=== PATIENT | female | born 1975 | race Native Hawaiian/Other Pacific Islander ===

== ENCOUNTER 2018-05-21 09:13 | Inpatient (IN) | payer OTHER ==
[2018-05-21] MEDS ORDERED: MINERAL OIL PO PRN (09:39)
[2018-05-21] MEDS ORDERED: ePHEDrine SULFATE IV PRN (09:39)
[2018-05-21] MEDS ORDERED: APRESOLINE IV ONE (09:42)
[2018-05-21] MEDS ORDERED: MAGNESIUM SULFATE 4GM/100ML 4 GM/100 ML BAG IV ONE (09:43)
[2018-05-21] MEDS ORDERED: MAGNESIUM SULFATE 40GM/1000ML 40 GM/1,000 ML BAG IV SCH (10:00)
[2018-05-21] MEDS ORDERED: PITOCin/NS 20 UNIT/1000ML DRIP 20 UNITS/1,000 ML BAG IV SCH ×3 (10:00→12:00)
[2018-05-21] MEDS ORDERED: LACTATED RINGERS 1,000 ML IV SCH ×2 (10:00→11:00)
[2018-05-21] MEDS ORDERED: DIPRIVAN 10 MG/ML IV ONE ×2 (10:22)
[2018-05-21] MEDS ORDERED: SUBLIMAZE ONE (10:22)
[2018-05-21] MEDS ORDERED: NORMODYNE IV ONE (10:30)
--- NOTE | 2018-05-21 10:34 | History and Physical Report ---
History of Present Illness Date of examination: 05/21/18 Date of admission: 05/21/18 09:53 Chief complaint: Severe constant abdominal pain since 04:00 History of present illness: 42 year old presents to L&D complaining of severe abdominal pain. Patient states abdominal pain started at 04:00 AM and has been constant since then. Patient denies vaginal bleeding or leaking of fluid. Patient denies contractions. Patient reports movement has been slightly decreased this AM but until this morning has been normal. Patient denies headache, visual disturbance, nausea or vomiting or swelling. Patient has received care at [facility]; she brings records with her. records show last visit was in January but patient states she has been seen more recently (2 weeks ago). Patient has gestational diabetes and has been taking Metformin. Patient states her sugars have not been well controlled. She states she has been seeing [facility]. Patient denies having chronic hypertension. She reports having severe preeclampsia with her first which necessitated a (32 week) vaginal delivery. Patient reports her second child was also born early (32 weeks ) due to PPROM. Third child was a full term normal vaginal . Fourth child was born vaginally at 40 weeks after IUFD. LMP 09/08/17. EDC 06/15/18. EGA 36 weeks, 3 days gestation. Current medications: Vitamin, Metformin 500 mg po BID. Medication allergies: NKDA. labs: O+, antibody screen negative, pap smear negative, rubella immune , RPR nonreactive, hepatitis B surface antigen negative, HIV negative, chlamydia negative, gonorrhea negative, quad screen negative. Past History Past Medical History: other (obesity, gestational diabetes, preeclampsia with her first ) Past Surgical History: no surgical history [employer] History: denies: abnormal PAP smear, chlamydia, gonorrhea, herpes, HIV Family/Genetic History: none Social history: , lives with family, full code. denies: smoking, alcohol abuse, prescription drug abuse, IV drug use - Obstetrical History Expected Date of Delivery: 06/15/18 Actual Gestation: 36 Week(s) 3 Day(s) : 8 Para: 3 Hx # Term Pregnancies: 2 Number of Pregnancies: 3 Spontaneous Abortions: 3 Induced : 0 Number of Living Children: 3 Medications and Allergies Allergies Allergy/AdvReac Type Severity Reaction Status Date / Time No Known Allergies Allergy Unverified 05/21/18 09:17 Active Meds: Active Medications Lactated Ringer's (Lactated Ringers) 1,000 mls @ 125 mls/hr IV DIRECT JONAH Oxytocin/Sodium Chloride (Pitocin/Ns 20 Unit/1000ml Drip) 20 units in 1,000 mls @ 125 mls/hr IV DIRECT JONAH Magnesium Sulfate (Magnesium Sulfate 40gm/1000ml) 40 gm in 1,000 mls @ 50 mls/ hr IV DIRECT JONAH Labetalol HCl (Normodyne) 10 mg IV ONCE ONE Stop: 05/21/18 10:23 Mineral Oil (Mineral Oil) 30 ml PO QHS PRN PRN Reason: Constipation Review of Systems All systems: negative (severe abdominal pain) - Vital Signs Vital signs: Vital Signs Pulse Pulse Ox 71 98 05/21/18 09:23 05/21/18 09:23 Temp Pulse Resp BP Pulse Ox 69 206/99 98 05/21/18 09:35 05/21/18 09:35 05/21/18 09:33 - Physical Exam Cardiovascular: Regular rate, Normal S1, Normal S2 Lungs: Positive: Clear to auscultation Abdomen: Positive: normal appearance, soft, tenderness. Negative: distention, guarding, rigidity Genitourinary (Female): Positive: normal external genitalia Cervix: Positive: other (60/-3 per RN upon arrival) Uterus: Positive: enlarged (gravid) Extremities: Positive: normal. Negative: tenderness, edema - Obstetrical FHR: category 2 (FHR baseline 140 with moderate variability and occasional variable FHR deceleration) Uterine Contraction Monitor Mode: External Cervical Dilatation: 1 Cervical Effacement Percentage: 60 station: -3 Results Result Diagrams: 05/21/18 10:15 All other labs normal. Assessment and Plan A: at 36 weeks, 3 days gestation. Severe preeclampsia. Uncontrolled gestational diabetes. GBS unknown. P: Admit Stat section per Dr. Nickerson. Stat labs. Magnesium Sulfate. IV Hydralazine. IV Labetalol.
[2018-05-21] MEDS ORDERED: BICITRA ONE (10:36)
[2018-05-21] MEDS ORDERED: ANCEF/STERILE WATER 2 GM/20 ML 2 GM/20 ML SYRINGE IV ONE (10:37)
[2018-05-21] MEDS ORDERED: PEPCID IV ONE ×3 (10:37→11:00)
[2018-05-21] MEDS ORDERED: REGLAN ONE (10:37)
[2018-05-21] MEDS ORDERED: BICITRA PO ONE ×2 (10:40→11:00)
[2018-05-21] MEDS ORDERED: REGLAN IV ONE ×2 (10:40→11:00)
[2018-05-21 10:42] LABS: Basophils # (Auto) 0.1 K/mm3 (0.0-0.1); Basophils % (Auto) 1.4 % (0.0-1.8); Eosinophils # (Auto) 0.1 K/mm3 (0.0-0.4); Eosinophils % (Auto) 0.8 % (0.0-4.3); Lymphocytes # (Auto) 2.6 K/mm3 (1.2-5.4); Lymphocytes % (Auto) 30.2 % (13.4-35.0); Mean Corpuscular HGB Conc 34 % (30-34); Mean Corpuscular Hemoglobin 29 pg (28-32); Mean Corpuscular Volume 83 fl (79-97); Monocytes # (Auto) 0.4 K/mm3 (0.0-0.8); Monocytes % (Auto) 5.2 % (0.0-7.3); Platelet Count 131 K/mm3 (140-440); Red Blood Count 5.27 M/mm3 (3.65-5.03)
[2018-05-21 10:50] LABS: Bacteria,Urine 4+ /HPF (Negative); Bilirubin,Urine NEG (Negative); Blood,Urine NEG (Negative); Color,Urine Yellow (Yellow); Mucus,Urine FEW /HPF
--- NOTE | 2018-05-21 10:51 | Anesthesia Consultation ---
Anesthesia Consult and Med Hx Date of service: 05/21/18 - Airway Anesthetic Teeth Evaluation: Good ROM Head & Neck: Adequate Mental/Hyoid Distance: Adequate Mallampati Class: Class III Intubation Access Assessment: Probably Good - Pulmonary Exam CTA: Yes - Cardiac Exam Cardiac Exam: RRR - Pre-Operative Health Status ASA Pre-Surgery Classification: ASA3 Proposed Anesthetic Plan: Spinal - Pre-Anesthesia Comment Pre-Anesthesia Comments: 42y presenting with concerns for Pre-Eclampsia; preg also complicated by poorly controlled diabetes. Prev deliveries vaginal. - Pulmonary Hx Asthma: No - Cardiovascular System Hx Hypertension: Yes Hx Coronary Artery Disease: No - Central Nervous System Hx Seizures: No Hx Psychiatric Problems: No - Endocrine Hx Renal Disease: No Hx Liver Disease: No Hx Hypothyroidism: No Hx Hyperthyroidism: No - Hematic Hx Anemia: No Hx Sickle Cell Disease: No - Other Systems Hx Alcohol Use: No
[2018-05-21 10:52] LABS: INR 0.81 (0.87-1.13)
--- NOTE | 2018-05-21 10:52 | Anesthesia Day of Surgery ---
Anesthesia Day of Surgery - Day of Surgery Patient Examined: Yes Patient H&P Reviewed: Yes Patient is NPO: No (emergent) Beta Blockers: No Cardiac Clearance: Yes Pulmonary Clearance: Yes Nadir's Test: N/A
[2018-05-21 10:53] LABS: Partial Thromboplastin Time 26.9 Sec. (24.2-36.6)
[2018-05-21 10:54] LABS: Amphetamine Screen,Urine PRESUMPTIVE NEGATIVE; Benzodiazepines Screen,Urine PRESUMPTIVE NEGATIVE; Cannabinoid Screen,Urine PRESUMPTIVE NEGATIVE; Cocaine Screen,Urine PRESUMPTIVE NEGATIVE; Methadone Screen,Urine PRESUMPTIVE NEGATIVE; Opiate Screen,Urine PRESUMPTIVE NEGATIVE
[2018-05-21] MEDS ORDERED: ANCEF/STERILE WATER 2 GM/20 ML 2 GM/20 ML SYRINGE IV NR (11:00)
[2018-05-21] MEDS ORDERED: ANCEF/STERILE WATER 2 GM/20 ML IV NR (11:00)
[2018-05-21] MEDS ORDERED: WATER FOR IRRIG STERILE IR ONE (11:10)
[2018-05-21] MEDS ORDERED: NACL 0.9% IR ONE (11:10)
[2018-05-21] MEDS ORDERED: LACTATED RINGERS 1,000 ML IV ONE (11:17)
[2018-05-21] MEDS ORDERED: NEO SYNEPHRINE/NS Syringe(OR USE) IV ONE ×3 (11:23→11:37)
--- NOTE | 2018-05-21 11:34 | Ultrasound Report ---
OB LIMITED INDICATION: Evaluate placental status, position. Severe abdominal pain. COMPARISON: None similar during this gestation. TECHNIQUE: Transabdominal grayscale ultrasound with Doppler interrogation. Gestation: Arnett Position: Cephalic Amniotic Fluid: WNL (7-24 cm) JULIANE = 9.2 cm Placenta: Fundal. No evidence of abruption. Few small cystic areas within the placenta may represent placental lakes. Placental Grade: Zero Heart Rate: 150 BPM CONCLUSION: Findings, as above.
[2018-05-21] MEDS ORDERED: NACL 0.9% 1000 ML 1,000 ML ONE (11:36)
[2018-05-21 11:55] LABS: Alanine Aminotransferase 30 units/L (7-56); Albumin 3.4 g/dL (3.9-5); BUN/Creatinine Ratio 28; Blood Urea Nitrogen 11 mg/dL (7-17); Hemolysis Index 8; Uric Acid 5.3 mg/dL (3.5-7.6)
--- NOTE | 2018-05-21 11:56 | Operative Report ---
Operative Report Operative Report: Date of procedure: 05/21/2018 Pre-operative diagnosis: 1. Intrauterine at 36-3/7 weeks 2. Severe preeclampsia 3. Uncontrolled gestational diabetes Post-operative diagnosis: Same Procedure name(s): Primary low transverse section Surgeon: Elliott Nickerson MD Glass Cut Off Supervisor: None Anesthesia: Spinal epidural anesthesia by Dr. Stevenson EBL: 500 mls Findings: A 3780 g female Apgars 8 at 1 minute and 9 at 5 minutes. Clear amniotic fluid. Normal uterus. Normal tubes and ovaries bilaterally. Procedure: After the patient was prepped and draped in usual sterile fashion, and after satisfactory level of epidural anesthesia was obtained, the skin knife was used to make a transverse skin incision. The incision was excised down to layer of the fascia, which was nicked in the midline and extended laterally using the Bovie cautery. The rectus muscles were dissected off the rectus fascia both superiorly and inferiorly. The rectus bellies in the midline, and the peritoneum was entered under direct visualization. The peritoneal incision was extended superiorly and inferiorly. A bladder flap was created and the bladder blade was then placed. The uterus was scored in a curvilinear linear fashion, entered in the midline revealing clear amniotic fluid. The infant's head was delivered onto the surgical field, nuchal cord 1 reduced and the oropharynx and nasopharynx were bulb suctioned. The rest of the 's body was delivered, cord was doubly clamped and cut and the was handed to the waiting respiratory team. Cord blood was obtained. The placenta was manually removed from the uterus, and the uterus removed from its normal anatomical position. After gentle uterine lavage, the incision was inspected and found to be without extensions. It was then closed in 2 layers using 0 Vicryl suture in a running interlocking fashion, the second layer imbricating the first. After good hemostasis was achieved, copious amounts or irrigation was performed, and the gutters were suctioned free of blood and blood clots. Tisseel sealant was sprayed across the uterine incision. The uterus was then returned to its normal anatomical position, and after excellent hemostasis assured, the peritoneum was re-approximated using 3-0 Vicryl suture in a running interlocking fashion, and then the rectus muscles were re- approximated using 3-0 Vicryl suture in a [id number] configuration. The fascia was then re-approximated using 0 Vicryl suture in running interlocking fashion. The subcutaneous layer was made hemostatic using Bovie cautery, the Tisseel sealant was sprayed across the fascial incision and the skin edges re- approximated using 4-0 Vicryl suture in a sub-cuticular fashion. Patient tolerated the procedure well was transported to recovery in stable condition.
[2018-05-21] MEDS ORDERED: NORCO 5/325 PO PRN (12:00)
[2018-05-21] MEDS ORDERED: SODIUM CHLORIDE FLUSH SYRINGE 10 ML IV NR (12:00)
[2018-05-21] MEDS ORDERED: TYLENOL PO PRN (12:00)
[2018-05-21] MEDS ORDERED: ANCEF/NS 1 GM/50 ML 1 GM/50 ML BAG IV SCH (12:00)
[2018-05-21] MEDS ORDERED: MYLICON PO PRN (12:00)
[2018-05-21] MEDS ORDERED: APRESOLINE IV PRN (12:00)
[2018-05-21] MEDS ORDERED: D5LR 1,000 ML IV SCH (12:00)
[2018-05-21] MEDS ORDERED: ZOFRAN IV PRN (12:00)
[2018-05-21] MEDS ORDERED: TUCKS PAD TP PRN (12:00)
[2018-05-21] MEDS ORDERED: D50W (25GM) Syringe IV PRN (12:00)
[2018-05-21] MEDS ORDERED: LANSINOH TP PRN (12:00)
[2018-05-21] MEDS ORDERED: NARCAN 0.4 MG/1 ML IV PRN (12:00)
[2018-05-21] MEDS ORDERED: MILK OF MAGNESIA PO PRN (12:00)
--- NOTE | 2018-05-21 12:23 | Post Anesthesia Evaluation ---
- Post Anesthesia Evaluation Patient Participated: Yes Airway Patent: Yes Stable Respiratory Function: Yes Nausea/Vomiting: No Temp > 96.8F: Yes Pain Manageable: Yes Adequeate Hydration: Yes Anesthesia Complications: No Block Receding Appropriately: Yes Patient on Ventilator: No
[2018-05-21] MEDS: TORADOL IV PRN ×2 (13:02→21:29)
[2018-05-21] MEDS: MORPHINE IV PRN (17:49)
[2018-05-21] MEDS: HumuLIN R SUB-Q SCH ×2 (18:34→21:40)
[2018-05-21] MEDS: ceFAZolin 1 GM in NACL 0.9% 20 ML IV SCH (21:29)
[2018-05-22 01:01] LABS: Hematocrit 36.2 % (30.3-42.9); Hemoglobin 12.4 gm/dl (10.1-14.3)
[2018-05-22] MEDS: MORPHINE IV PRN (02:03)
[2018-05-22] MEDS: ceFAZolin 1 GM in NACL 0.9% 20 ML IV SCH (05:40)
[2018-05-22] MEDS: TORADOL IV PRN (05:45)
[2018-05-22] MEDS ORDERED: BOOSTRIX IM ONE (06:00)
[2018-05-22] MEDS ORDERED: M-M-R II VACCINE SUB-Q ONE (06:00)
[2018-05-22] MEDS: HumuLIN R SUB-Q SCH ×3 (08:45→18:00)
[2018-05-22] MEDS: PRENATAL VITAMIN PO SCH (09:59)
[2018-05-22] MEDS: FEOSOL PO SCH (09:59)
--- NOTE | 2018-05-22 10:37 | Progress Note ---
Assessment and Plan - Patient Problems (1) S/P repeat low transverse Current Visit: Yes Status: Acute Plan to address problem: POD 1 - stable Continue routine postop orders Anticipate discharge in 24-48-hrs (2) Pre-eclampsia Current Visit: Yes Status: Acute Qualifiers: Trimester: third trimester Qualified Code(s): O14.93 - Unspecified pre- eclampsia, third trimester Plan to address problem: BPs stable Continue magnesium sulfate therapy Check magnesium level Discontinue 24 hrs post-delivery Ambulation encouraged, as tolerated (3) Gestational diabetes mellitus Current Visit: Yes Status: Acute Qualifiers: Gestational diabetes mellitus control: insulin-controlled Trimester: third trimester Qualified Code(s): O24.414 - Gestational diabetes mellitus in , insulin controlled Plan to address problem: Continue routine accuchecks Continue sliding scale insulin Subjective - Subjective Date of service: 05/22/18 Principal diagnosis: s/p Primary LTCS, POD 1 Patient reports: appetite normal, pain well controlled, other (Denies headache, visual disturbances or epigastric pain. Fernandes catheter in place) Objective - Vital Signs Latest vital signs: Vital Signs Temp Pulse Resp BP BP Pulse Ox 05/22/18 07:38 71 109/64 05/22/18 07:35 98.6 F 62 20 106/69 94 05/22/18 04:30 98.1 F 73 127/79 05/22/18 02:35 73 18 123/75 96 05/22/18 00:45 97.9 F 74 18 135/80 94 05/21/18 22:30 94 H 18 105/67 95 05/21/18 20:15 98.4 F 89 18 115/70 96 05/21/18 17:59 88 18 127/76 95 05/21/18 17:49 20 05/21/18 16:40 97.9 F 87 18 143/84 95 05/21/18 13:50 97.6 F 71 16 131/77 98 05/21/18 13:14 97.8 F 05/21/18 13:05 75 17 129/72 98 05/21/18 13:02 22 05/21/18 13:00 76 15 129/80 98 05/21/18 12:55 74 18 135/81 96 05/21/18 12:50 74 17 132/75 97 05/21/18 12:45 75 11 L 122/72 98 06/24/18 12:40 75 13 127/74 96 05/21/18 12:35 73 18 126/73 96 05/21/18 12:30 74 19 120/73 97 05/21/18 12:25 76 19 121/70 96 05/21/18 12:19 77 19 119/68 96 05/21/18 12:13 79 16 111/70 96 05/21/18 12:07 80 20 111/68 96 05/21/18 12:01 97.6 F 96 05/21/18 11:01 96 H 130/74 05/21/18 10:58 92 H 127/74 05/21/18 10:42 88 135/77 Intake and Output 05/21/18 05/22/18 05/22/18 23:59 07:59 15:59 Intake Total 600 240 Output Total 1400 2100 Balance -800 -1860 Intake: Oral 600 240 Output: Urine 1400 2100 Indwelling Catheter 1400 2100 Other: Total, Intake Amount 240 120 Total, Output Amount 800 1200 - Exam Cardiovascular: Present: Regular rate, Normal S1, Normal S2, No murmurs Lungs: Present: Clear to auscultation, Normal air movement Abdomen: Present: normal appearance, soft Vulva: both: normal Uterus: Present: normal, firm, fundal height at umbilicus Incision: Present: normal, dry, dressed - Labs Labs: Abnormal lab results 05/21/18 05/21/18 05/21/18 Range/Units 10:15 10:15 10:15 RBC 5.27 H (3.65-5.03) M/mm3 Hgb 15.0 H (10.1-14.3) gm/dl Hct 44.0 H (30.3-42.9) % Plt Count 131 L (140-440) K/mm3 PT (12.2-14.9) Sec. INR (0.87-1.13) Fibrinogen (211-480) mg/dl Sodium 136 L (137-145) mmol/L Carbon Dioxide 20 L (22-30) mmol/L Creatinine 0.4 L (0.7-1.2) mg/dL Glucose 120 H (65-100) mg/dL POC Glucose (70-105) AST 43 H (5-40) units/L Alkaline Phosphatase 182 H (35-129) units/L Lactate Dehydrogenase (91-180) units/L Albumin 3.4 L (3.9-5) g/dL Urine WBC (Auto) 10.0 H (0.0-6.0) /HPF 05/21/18 05/21/18 05/21/18 Range/Units 10:15 10:15 13:45 RBC (3.65-5.03) M/mm3 Hgb (10.1-14.3) gm/dl Hct (30.3-42.9) % Plt Count (140-440) K/mm3 PT 11.6 L (12.2-14.9) Sec. INR 0.81 L (0.87-1.13) Fibrinogen 501 H (211-480) mg/dl Sodium (137-145) mmol/L Carbon Dioxide (22-30) mmol/L Creatinine (0.7-1.2) mg/dL Glucose (65-100) mg/dL POC Glucose 141 H (70-105) AST (5-40) units/L Alkaline Phosphatase (35-129) units/L Lactate Dehydrogenase 422 H (91-180) units/L Albumin (3.9-5) g/dL Urine WBC (Auto) (0.0-6.0) /HPF 05/21/18 05/21/18 Range/Units 18:30 21:52 RBC (3.65-5.03) M/mm3 Hgb (10.1-14.3) gm/dl Hct (30.3-42.9) % Plt Count (140-440) K/mm3 PT (12.2-14.9) Sec. INR (0.87-1.13) Fibrinogen (211-480) mg/dl Sodium (137-145) mmol/L Carbon Dioxide (22-30) mmol/L Creatinine (0.7-1.2) mg/dL Glucose (65-100) mg/dL POC Glucose 168 H 122 H (70-105) AST (5-40) units/L Alkaline Phosphatase (35-129) units/L Lactate Dehydrogenase (91-180) units/L Albumin (3.9-5) g/dL Urine WBC (Auto) (0.0-6.0) /HPF
[2018-05-22] MEDS: PERCOCET 5/325 PO PRN ×2 (11:01→21:09)
[2018-05-22] MEDS: MOTRIN PO PRN (15:18)
[2018-05-23] MEDS: PERCOCET 5/325 PO PRN ×3 (02:10→17:55)
[2018-05-23] MEDS: MOTRIN PO PRN (05:26)
[2018-05-23] MEDS: HumuLIN R SUB-Q SCH ×5 (06:35→21:41)
[2018-05-23] MEDS: FEOSOL PO SCH (09:53)
[2018-05-23] MEDS: PRENATAL VITAMIN PO SCH (09:53)
--- NOTE | 2018-05-23 10:09 | Progress Note ---
Assessment and Plan (1) S/P repeat low transverse Current Visit: Yes Status: Acute Plan to address problem: POD 2 - stable Continue routine postop orders Anticipate discharge in 24-48-hrs (2) Pre-eclampsia Current Visit: Yes Status: Acute Qualifiers: Trimester: third trimester Qualified Code(s): O14.93 - Unspecified pre- eclampsia, third trimester Plan to address problem: BPs stable Magnesium sulfate discontinued Ambulation encouraged, as tolerated (3) Gestational diabetes mellitus Current Visit: Yes Status: Acute Qualifiers: Gestational diabetes mellitus control: insulin-controlled Trimester: third trimester Qualified Code(s): O24.414 - Gestational diabetes mellitus in , insulin controlled Plan to address problem: Continue routine accuchecks Continue sliding scale insulin Subjective - Subjective Date of service: 05/23/18 Principal diagnosis: s/p Primary LTCS, POD 1 Patient reports: appetite normal, voiding normally, pain well controlled, flatus , ambulating normally, no bowel movement : doing well, bottle feeding Objective - Vital Signs Latest vital signs: Vital Signs Temp Pulse Resp BP BP Pulse Ox 05/23/18 05:26 18 05/23/18 02:10 18 05/22/18 23:27 98.4 F 70 16 136/67 95 05/22/18 21:09 20 05/22/18 16:45 98.3 F 65 16 111/61 111/81 96 05/22/18 12:00 98.2 F 70 20 118/71 93 05/22/18 11:59 98.2 F 69 20 113/71 93 05/22/18 10:08 98.1 F 73 20 118/65 118/65 95 Intake and Output 05/22/18 05/23/18 05/23/18 23:59 07:59 15:59 Intake Total 480 600 Output Total 600 405 Balance -120 195 Intake: Oral 480 600 Output: Urine 600 405 Indwelling Catheter 5 Void 600 400 Other: Total, Intake Amount 480 600 Total, Output Amount 600 5 # Voids Void 1 # Bowel Movements 0 - Exam Breasts: Present: normal Cardiovascular: Present: Regular rate, Normal S1, Normal S2 Lungs: Present: Clear to auscultation, Normal air movement Abdomen: Present: normal appearance, soft, tenderness (as expected), normal bowel sounds. Absent: distention Vulva: both: normal Uterus: Present: firm, fundal height at umbilicus Extremities: Present: normal Deep Tendon Reflex Grade: Normal +2 Incision: Present: normal (LTI, Closed with SQ sutures, steri strips, CDI, no drainage), dry, intact, dressed (Pressure pressing removed) - Labs Labs: Abnormal lab results 05/22/18 05/22/18 05/22/18 Range/Units 08:55 11:53 12:08 POC Glucose 120 H 138 H (70-105) Magnesium 4.90 H (1.7-2.3) mg/dL 05/22/18 05/22/18 Range/Units 18:10 21:17 POC Glucose 149 H 107 H (70-105) Magnesium (1.7-2.3) mg/dL
--- NOTE | 2018-05-23 10:12 | Discharge Summary ---
Providers - Providers Date of Admission: 05/21/18 09:53 Date of discharge: 05/24/18 Attending physician: JOSEPH KIM MD Primary care physician: JOSEPH KIM MD Hospitalization Reason for admission: active labor, IUP at term Delivery: Procedure: primary low transverse Procedure details: See H&P and operative note Incision: normal (LTI closed with SQ sutures and steri strips, CDI, no drainage. ), dry, intact, dressed (Pressure dressing removed. ) complications: none Discharge diagnosis: IUP at term delivered [employer] baby: female Condition at discharge: Good Disposition: DC-01 TO HOME OR SELFCARE Plan - Discharge Medications Prescriptions: Ferrous Sulfate [Feosol 325 MG tab] 325 mg PO BID #60 tablet HYDROcodone/APAP 5-325 [Borup 5/325] 1 each PO Q6HR PRN #30 tablet PRN Reason: Pain Ibuprofen [Motrin] 800 mg PO Q8HR PRN #30 tablet PRN Reason: Moder Pain Unrelieved By Borup Vit Calc,Iron,Folic [ Vitamins] 1 each PO DAILY #30 tablet - Provider Discharge Summary Activity: routine, no sex for 6 weeks, no heavy lifting 4 weeks, no strenuous exercise Diet: routine Instructions: routine Additional instructions: [] Smoking cessation referral if applicable(refer to patient education folder for contact #) [] Refer to [facility] Booklet Call your doctor immediately for: * Fever > 100.5 * Heavy vaginal bleeding ( >1 pad per hour) * Severe persistent headache * Shortness of breath * Reddened, hot, painful area to leg or breast * Drainage or odor from incision. * Keep incision clean and dry at all times and follow doctor's instructions regarding bathing/showering - Follow up plan Follow up: JOSEPH KIM MD [Primary Care Provider] - 7 Days
[2018-05-24] MEDS: MOTRIN PO PRN ×2 (00:32→05:48)
[2018-05-24 10:47] VITALS: BP 139/75
== END 2018-05-24 11:00 | disposition home or self-care (01) | DRG 766 ==
LOC: TRG 09:13 → LD 09:53 → OB 13:38
PROVIDERS: ADMIT Obstetrics & Gynecology; ATTEND Obstetrics & Gynecology
PROC: 10D00Z1 Extraction of Products of Conception, Low, Open Approach (ICD-10-PCS; principal; 2018-05-21)
PROC: 3E0234Z Introduction of Serum, Toxoid and Vaccine into Muscle, Percutaneous Approach (ICD-10-PCS; 2018-05-22)
DX: O11.4 Pre-existing hypertension with pre-eclampsia, complicating childbirth (principal); O24.429 Gestational diabetes mellitus in childbirth, unspecified control; E66.9 Obesity, unspecified; O69.81X0 Labor and delivery complicated by cord around neck, without compression, not applicable or unspecified; O99.214 Obesity complicating childbirth; Z68.26 Body mass index [BMI] 26.0-26.9, adult; Z37.0 Single live birth; Z3A.36 36 weeks gestation of pregnancy; Z23 Encounter for immunization
CPT/HCPCS: 36415; 76815; 80053; 80307; 81001; 82962; 83615; 83735; 84550; 85014; 85018; 85025; 85027; 85384; 85610; 85730; 86592; 86850; 86900; 86901; C9250; J0360; J0690; J1815; J1885; J2270; J2370; J2590; J2704; J2765; J3010; J3475; J7030; J7120